=== PATIENT | male | born 1990 | race Caucasian/White ===

== ENCOUNTER 2024-04-01 09:36 | Emergency (ER) | payer SELFPAY ==
[~2024-04-01] VITALS: Ht 170.2 cm; Wt 77.0 kg
[2024-04-01 09:39] VITALS: O2SAT 99
[2024-04-01 10:20] LABS: BASOPHILS % 0.3 % (0.0-2.0); EOSINOPHILS % 1.2 % (0.0-5.0); HEMATOCRIT. 43.1 % (42.0-52.0); HEMOGLOBIN. 14.5 g/dL (14.0-18.0); LYMPHOCYTES % 28.6 % (20.0-50.0); MEAN CORPUSCULAR HEMOGLOBIN 31.2 pg (28.0-32.0); MEAN CORPUSCULAR HGB CONC 33.7 g/dL (31.0-37.0); MEAN CORPUSCULAR VOLUME 92.6 fL (80.0-94.0); MONOCYTES % 8.7 % (2.0-8.0); NEUTROPHILS % 61.2 % (40.0-76.0); PLATELET 200 x1000/uL (130-400); RED BLOOD CELL COUNT 4.66 mill/uL (4.7-6.1); RED CELL DISTRIBUTION WIDTH 13.4 % (11.6-14.6); WHITE BLOOD COUNT 7.3 x1000/uL (4.5-11.0)
[2024-04-01 10:27] LABS: CHLORIDE 104 mEq/L (98-107); POTASSIUM 4.6 mEq/L (3.5-5.1); SODIUM 138 mEq/L (136-145)
[2024-04-01 10:28] LABS: CARBON DIOXIDE 28 mEq/L (21-32)
[2024-04-01 10:29] LABS: CALCIUM 9.6 mg/dL (8.7-10.4)
[2024-04-01 10:33] LABS: GLUCOSE 116 mg/dL (70-105)
[2024-04-01 10:34] LABS: UREA NITROGEN BLOOD 13 mg/dL (9-23)
[2024-04-01] MEDS ORDERED: FAMO-135 MT ×2 (11:24→14:18)
[2024-04-01] MEDS ORDERED: ONDA4TAB11 PO ×2 (11:24→14:18)
[2024-04-01 11:26] LABS: CLARITY URINE CLEAR (CLEAR); COLOR URINE YELLOW (YELLOW); GLUCOSE URINE NEGATIVE (NEGATIVE); KETONES URINE TRACE (NEGATIVE); LEUKOCYTE ESTERASE URINE NEGATIVE (NEGATIVE); NITRITE URINE NEGATIVE (NEGATIVE); OCCULT BLOOD URINE 1+ (NEGATIVE); PH URINE 6.5 (4.5-8.0); PROTEIN URINE NEGATIVE (NEGATIVE); UROBILINOGEN URINE 0.2 E.U./dL (0.2-1.0)
[2024-04-01] MEDS: ONDANSETRON 4MG ODT PO ONE (11:38)
[2024-04-01] MEDS: KETOROLAC 15MG/ML VIAL IM ONE (11:38)
[2024-04-01] MEDS: SODIUM CHLORIDE 0.9% 1,000 ML IV ONE (11:38)
[2024-04-01] MEDS: FAMOTIDINE 20MG/2ML VIAL IV NR (11:39)
[2024-04-01] MEDS: MAGNESIUM/ALUMINUM HYDROXIDE/SIMETHICONE 30ML UDC PO NR (11:39)
[2024-04-01 11:51] LABS: SQUAMOUS EPITHELIAL CELL URINE RARE /lpf (RARE/1+)
[2024-04-01 11:52] LABS: RBC URINE 0-2 /hpf (0-2)
[2024-04-01 11:54] LABS: BACTERIA URINE TRACE; WBC URINE 0-2 /hpf (0-2)
[2024-04-01 11:57] VITALS: BP 117/79; PULSE 72; RESP 16; TEMP 98.6
== END 2024-04-01 12:25 | disposition home or self-care (01) ==
LOC: ER 09:36
DX: K52.9 Noninfective gastroenteritis and colitis, unspecified (principal)
CPT/HCPCS: 80048; 81003; 83690; 85025; 36415; 74176; 96361; 96372; 96374; 99285; Q0162; J3490; J1885; Z7610